=== PATIENT | male | born 1995 | race Caucasian/White ===

== ENCOUNTER 2017-10-06 15:30 | Emergency (ER) | payer SELFPAY ==
[~2017-10-06] VITALS: Ht 185.4 cm; Wt 88.0 kg
[2017-10-06 15:36] VITALS: BP 141/67; PULSE 73; RESP 19; TEMP 98.4; O2SAT 98
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
[2017-10-06] MEDS ORDERED: MOBI15TA PO (16:53)
[2017-10-06] MEDS ORDERED: TRAM50 PO (16:53)
[2017-10-06] MEDS ORDERED: ROBA750T PO (16:53)
== END 2017-10-06 17:06 | disposition home or self-care (01) ==
LOC: NEPD 15:30
DX: S32.049A Unspecified fracture of fourth lumbar vertebra, initial encounter for closed fracture (principal); Y04.0XXA Assault by unarmed brawl or fight, initial encounter
CPT/HCPCS: 72100; 72170; 99283